=== PATIENT | male | born 1980 | race Caucasian/White ===

== ENCOUNTER 2017-02-07 14:10 | Emergency (ER) | payer BC ==
[2017-02-07 14:22] VITALS: BP 128/87; PULSE 93; TEMP 97.8; BMI 28.1
[2017-02-07] MEDS ORDERED: DIPHTH,PERTUSS(ACELL),TET 0.5 ML DISP.SYRIN IM ONE (15:23)
--- NOTE | 2017-02-07 15:55 | PDOC ---
History of Present Illness - General Chief Complaint: Injury Stated Complaint: RIGHT HAND INJURY Time Seen by Provider: 02/07/17 14:26 - History of Present Illness Initial Comments: 02/07/17 15:27 CHIEF COMPLAINT: HISTORY OF PRESENT ILLNESS: 36 yo M with no PMH presents to fast track with laceration to R 5th finger x 2 hours. Patient states he was washing the dishes when a glass broke in his hand and a piece cut his finger. Patient denies any fever, nausea, vomiting, diarrhea, or warmth or swelling to finger. PAST MEDICAL HISTORY: Denies past medical history FAMILY HISTORY: Denies SOCIAL HISTORY:Denies tobacco, alcohol, illicit drug use. SURGICAL HISTORY: Denies ALLERGIES: tetracycline REVIEW OF SYSTEMS General/Constitutional: Denies fever or chills. Denies weakness, weight change. HEENT: Denies change in vision. Denies ear pain or discharge. Denies sore throat. Cardiovascular: Denies chest pain or shortness of breath. Respiratory: Denies cough, wheezing, or hemoptysis. Gastrointestinal: Denies nausea, vomiting, diarrhea or constipation. Denies rectal bleeding. Genitourinary: Denies dysuria, frequency, or change in urination. Musculoskeletal: Denies joint or muscle swelling or pain. Denies neck or back pain. Skin and breasts: Cut to R 5th finger. Denies rash or easy bruising. PHYSICAL EXAM General Appearance: Well-appearing, appropriately dressed. No apparent distress. Respiratory/Chest: Lungs CTAB. Cardiovascular: RRR. S1, S2. Lymphatic: No adenopathy, tenderness. Musculoskeletal/Extremities: Superficial laceration to lateral R 5th finger. Normal inspection. FROM of all extremities, normal capillary refill. Pelvis Stable. No CVA tenderness. No tenderness to extremities, pedal edema, swelling , erythema or deformity. Integumentary: See MSK. Appropriate color, dry, warm. No cyanosis, erythema, jaundice or rash Neurologic: fine arts chair II-XII intact. Fully oriented, alert. Appropriate mood/affect. No appreciable EOM palsy, facial droop or sensory deficit. 02/07/17 16:10 Past History - Past Medical History Allergies/Adverse Reactions: Allergies Allergy/AdvReac Type Severity Reaction Status Date / Time tetracycline [Tetracycline] Allergy Mild Verified 02/07/17 14:17 Home Medications: Ambulatory Orders NK [No Known Home Medication] 02/07/17 Asthma: No Cardiac Disorders: No Diabetes: No Kidney Stones: No Other medical history: none - Immunization History Immunization Up to Date: Yes - Psycho/Social/Smoking Cessation Hx Anxiety: No Suicidal Ideation: No Smoking Status: No Smoking History: Former smoker Have you smoked in the past 12 months: No Number of Cigarettes Smoked Daily: 0 Information on smoking cessation initiated: No Hx Alcohol Use: No Drug/Substance Use Hx: No Substance Use Type: None *Physical Exam - Vital Signs Last Vital Signs Temp Pulse Resp BP Pulse Ox 97.8 F 93 H 18 128/87 100 02/07/17 14:17 02/07/17 14:17 02/07/17 14:17 02/07/17 14:17 02/07/17 14:17 ED Treatment Course - RADIOLOGY Radiology Studies Ordered: Category Date Time Status HAND- RIGHT [RAD] Stat Radiology 02/07/17 15:21 Ordered Medical Decision Making - Medical Decision Making 02/07/17 16:15 36 yo M with no PMH presents to ED with laceration to R fifth finger. -X-ray of R hand to r/o foreign object -Tdap 0.5 mL IM Laceration irrigated with high pressure saline and cleaned with betadine solution. Laceration repair completed with 3 layers of Dermabond, dried and covered with tube gauze. Advised patient of post repair care and of signs and symptoms for return to ER. Patient verbalized understanding and agrees to plan. *DC/Admit/Observation/Transfer Diagnosis at time of Disposition: Laceration of finger Qualifiers: Encounter type: initial encounter Qualified Code(s): S61.219A - Laceration without foreign body of unspecified finger without damage to nail, initial encounter - Discharge Dispostion Disposition: HOME Condition at time of disposition: Stable Admit: No - Referrals Referrals: Kusum Mcgraw MD [Primary Care Provider] - - Patient Instructions Printed Discharge Instructions: DI for Laceration Repair With Dermabond Additional Instructions: Please keep site of injury clean and dry for next 24 hours; afterwards you may wash with mild soap and water. If you experience any fever, nausea, vomiting, diarrhea, or redness, warmth, streaking, or swelling to your finger or hand, please return to the ER.
== END 2017-02-07 16:34 | disposition home or self-care (01) ==
LOC: JERFT 14:10
PROC: 0HQFXZZ Repair Right Hand Skin, External Approach (ICD-10-PCS; principal; 2017-02-07)
PROC: 3E0234Z Introduction of Serum, Toxoid and Vaccine into Muscle, Percutaneous Approach (ICD-10-PCS; 2017-02-07)
DX: S61.216A Laceration without foreign body of right little finger without damage to nail, initial encounter (principal); W25.XXXA Contact with sharp glass, initial encounter; Y93.G1 Activity, food preparation and clean up; Y92.010 Kitchen of single-family (private) house as the place of occurrence of the external cause; Q06.8 Other specified congenital malformations of spinal cord
CPT/HCPCS: 73130-TC-RT; 90715; 99281-25

== ENCOUNTER 2017-02-23 22:02 | Emergency (ER) | payer OTHER, BC ==
[2017-02-23 22:20] VITALS: BP 129/72; PULSE 96; TEMP 98.1; BMI 28.8
[2017-02-23] MEDS ORDERED: RABIES VACCINE (PCEC)/PF 2.5 UNIT/VIAL IM ONE (23:30)
[2017-02-23] MEDS ORDERED: RABIES IMMUNE GLOBULIN 300 UNITS/2 ML VIAL IM ONE (23:30)
--- NOTE | 2017-02-24 01:08 | PDOC ---
History of Present Illness - General Chief Complaint: Bite Stated Complaint: YPD/BITE Time Seen by Provider: 02/23/17 22:36 History Source: Patient Exam Limitations: No Limitations - History of Present Illness Initial Comments: 02/24/17 01:03 36yo Male patient presents to ED c/o dog bite (Rj Walton). Patient states that he works for [employer] and while responding to a call at a residence he was bitten by the animal on his right hand. 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 Reports tetanus is up to date. Denies any other complaints at this time. Timing/Duration: reports: just prior to arrival Severity: Yes: mild Location: reports: extremities, hands (right) Associated Symptoms: denies: denies symptoms, blisters, change in skin texture, edema, fever, flushing, headache, hives, jaundice, malaise, nasal congestion, numbness, pallor, paresthesia, petechiae, rash, sore throat, swelling/mass/lumps , tingling, other Past History - Travel Traveled outside of the country in the last 30 days: No Close contact w/someone who was outside of country & ill: No - Past Medical History Allergies/Adverse Reactions: Allergies Allergy/AdvReac Type Severity Reaction Status Date / Time tetracycline [Tetracycline] Allergy Mild Verified 02/23/17 22:17 Home Medications: Ambulatory Orders Amoxicillin/Potassium Clav [Augmentin 875-125 Tablet] 1 each PO Q12H #20 tablet 02/24/17 Asthma: No Cardiac Disorders: No Diabetes: No Kidney Stones: No - Immunization History Immunization Up to Date: Yes - Psycho/Social/Smoking Cessation Hx Anxiety: No Suicidal Ideation: No Smoking Status: No Smoking History: Never smoked Have you smoked in the past 12 months: No Number of Cigarettes Smoked Daily: 0 Information on smoking cessation initiated: No Hx Alcohol Use: No Drug/Substance Use Hx: No Substance Use Type: None Review of Systems - Review of Systems Able to Perform ROS?: Yes Is the patient limited Hebrew proficient: No Constitutional: No: Chills, Fever Respiratory: No: Shortness of Breath, Wheezing Cardiac (ROS): No: Chest Pain, Palpitations, Syncope, Chest Tightness ABD/GI: No: Diarrhea, Nausea, Vomiting Musculoskeletal: Yes: Other (Right hand Pain). No: Joint Pain Integumentary: Yes: Other (Puncture wound to right hand.) All Other Systems: Reviewed and Negative *Physical Exam - Vital Signs Last Vital Signs Temp Pulse Resp BP Pulse Ox 98.1 F 96 H 14 129/72 97 02/23/17 22:18 02/23/17 22:18 02/23/17 22:18 02/23/17 22:18 02/23/17 22:18 - Physical Exam General Appearance: Yes: Nourished, Appropriately Dressed. No: Apparent Distress, Mild Distress, Moderate Distress, Severe Distress Respiratory/Chest: positive: Lungs Clear, Normal Breath Sounds. negative: Respiratory Distress, Accessory Muscle Use, Labored Respiration, Rapid RR Cardiovascular: positive: Regular Rhythm, Regular Rate. negative: Edema, JVD, Murmur Musculoskeletal: positive: Normal Inspection. negative: CVA Tenderness, Vertebral Tenderness Extremity: positive: Normal Capillary Refill, Normal Inspection, Normal Range of Motion Integumentary: positive: Normal Color, Dry, Warm, Swelling (Mild), Bruising, Other (Isolated Puncture wound to right hand. No drainage or pus noted. ROM WNL) ED Treatment Course - Medications Given in the ED: ED Medications Discontinued Medications Generic Name Dose Route Start Last Admin Trade Name Freq PRN Reason Stop Dose Admin Rabies Immune Globulin 11.5 ml 02/23/17 23:30 02/24/17 00:40 Hyperrab S/D - IM 02/23/17 23:31 11.5 ml .ONCE ONE Administration Protocol Rabies Vaccine 2.5 unit 02/23/17 23:30 02/24/17 00:38 Rabavert Rabies Vaccine IM 02/23/17 23:31 2.5 unit .ONCE ONE Administration *DC/Admit/Observation/Transfer Diagnosis at time of Disposition: Animal bite - Discharge Dispostion Disposition: HOME Condition at time of disposition: Stable Admit: No - Prescriptions Prescriptions: Amoxicillin/Potassium Clav [Augmentin 875-125 Tablet] 1 each PO Q12H #20 tablet - Patient Instructions Printed Discharge Instructions: DI for Animal Bites, How to Care for a Wild Animal Bite Additional Instructions: FOLLOW INSTRUCTIONS TO RETURN ON DAY 3 FOR CONTINUATION OF RABIES VACCINATION. TAKE MEDICATIONS PRESCRIBED. MOTRIN OR TYLENOL FOR PAIN NEEDED. RETURN IF SYMPTOMS WORSEN OR ANY CONCERNS FOR FURTHER EVALUATION. Print Language: SWISS - Post Discharge Activity Work/School Note: Back to Work
[2017-02-24] MEDS ORDERED: AMOX TR/POT CLAV 875MG/125MG TABLETS (FP) PO ONE (01:25)
[2017-02-24] MEDS ORDERED: AMOX TR/POT CLAV 875MG/125MG TABLETS (FP) ONE (01:29)
== END 2017-02-24 01:37 | disposition home or self-care (01) ==
LOC: JER 22:02
PROC: 3E0234Z Introduction of Serum, Toxoid and Vaccine into Muscle, Percutaneous Approach (ICD-10-PCS; principal; 2017-02-23)
PROC: 3E0234Z Introduction of Serum, Toxoid and Vaccine into Muscle, Percutaneous Approach (ICD-10-PCS; 2017-02-23)
DX: S61.451A Open bite of right hand, initial encounter (principal); W54.0XXA Bitten by dog, initial encounter; Y35.891A Legal intervention involving other specified means, law enforcement official injured, initial encounter; Y93.89 Activity, other specified; Y92.019 Unspecified place in single-family (private) house as the place of occurrence of the external cause; Y99.0 Civilian activity done for income or pay
CPT/HCPCS: 90375; 90675; 99281-25

== ENCOUNTER 2020-11-20 16:34 | Emergency (ER) | payer BC, OTHER ==
[2020-11-20 16:55] VITALS: BP 131/99; TEMP 98.3; BMI 28.8
[2020-11-20] MEDS ORDERED: KETOROLAC TROMETHAMINE 30 MG/1 ML VIAL IM ONE (17:16)
[2020-11-20] MEDS ORDERED: KETOROLAC TROMETHAMINE 30 MG/1 ML VIAL ONE (17:20)
[2020-11-20 19:22] VITALS: PULSE 87
== END 2020-11-20 19:23 | disposition home or self-care (01) ==
LOC: FER 16:34
PROC: 3E023GC Introduction of Other Therapeutic Substance into Muscle, Percutaneous Approach (ICD-10-PCS; principal; 2020-11-20)
DX: S49.92XA Unspecified injury of left shoulder and upper arm, initial encounter (principal); Y04.8XXA Assault by other bodily force, initial encounter
CPT/HCPCS: 73000-TC-LT-FY; 73030-TC-LT-FY; 73060-TC-LT-FY; 73070-TC-LT-FY; 73090-TC-LT-FY; 99284-25